=== PATIENT | male | born 1985 | race African-American/Black ===

== ENCOUNTER 2024-04-09 12:39 | Emergency (ER) | payer MEDICAID, OTHER ==
[~2024-04-09] VITALS: Ht 195.6 cm; Wt 90.7 kg
[2024-04-09 12:41] VITALS: O2SAT 99
[2024-04-09 12:48] VITALS: TEMP 36.66960; O2SAT 99
[2024-04-09] MEDS: HYDROCODONE/ACETAMINOPHEN 5/325MG TABLET PO ONE ×2 (13:38→16:30)
[2024-04-09] MEDS: ONDANSETRON 4MG ODT PO ONE (13:38)
[2024-04-09 15:44] LABS: CLARITY URINE CLOUDY (CLEAR); COLOR URINE DARK YELLOW (YELLOW); GLUCOSE URINE NEGATIVE (NEGATIVE); KETONES URINE TRACE (NEGATIVE); LEUKOCYTE ESTERASE URINE NEGATIVE (NEGATIVE); NITRITE URINE NEGATIVE (NEGATIVE); OCCULT BLOOD URINE NEGATIVE (NEGATIVE); PH URINE 5.5 (4.5-8.0); PROTEIN URINE 1+ (NEGATIVE); SPECIFIC GRAVITY URINE 1.022 (1.005-1.030)
[2024-04-09 16:04] LABS: BACTERIA URINE NONE SEEN; HYALINE CASTS URINE 0-5 /lpf; RBC URINE 0-2 /hpf (0-2); SQUAMOUS EPITHELIAL CELL URINE 1+ /lpf (RARE/1+); WBC URINE 0-2 /hpf (0-2)
[2024-04-09 16:30] VITALS: BP 98/68; PULSE 96; RESP 16
[2024-04-09] MEDS ORDERED: IBUP-2030 MT (17:23)
== END 2024-04-09 18:10 | disposition home or self-care (01) ==
LOC: ER 12:39
DX: N50.82 Scrotal pain (principal); F15.10 Other stimulant abuse, uncomplicated
CPT/HCPCS: 99284; 93976; 81003; 76870; Q0162